=== PATIENT | female | born 1950 | race Caucasian/White ===

== ENCOUNTER 2018-01-29 15:01 | Emergency (ER) | payer OTHER, MEDICAID ==
[~2018-01-29] VITALS: Ht 167.6 cm; Wt 72.6 kg
[2018-01-29 16:00] LABS: Eosinophils # (auto) 0.1 uL; Eosinophils % (auto) 0.6 % (0.0-7.0)
[2018-01-29 16:02] LABS: Basophils # (auto) 0.1 uL; Basophils % (auto) 0.6 % (0.0-2.0); Hematocrit 25.3 % (36.0-46.0); Hemoglobin 8.4 g/dL (12.2-16.2); Lymphocytes # (auto) 0.8 uL; Lymphocytes % (auto) 6.5 % (10.0-50.0); Mean Corpuscular Hemoglobin 26.1 pg (28.0-32.0); Mean Corpuscular Hgb Conc. 33.4 g/dL (32.0-36.0); Mean Corpuscular Volume 78.3 fL (80.0-100.0); Monocytes # (auto) 0.6 uL; Monocytes % (auto) 4.7 % (0.0-12.0); Neutrophils # (auto) 10.4 uL; Neutrophils % (auto) 87.6 % (37.0-80.0); Platelet Count (auto) 236 10^3/uL (140-450); Red Blood Cells 3.23 10^6/uL (4.0-5.20); White Blood Cell 11.9 10^3/uL (4.4-10.8)
[2018-01-29 16:04] LABS: Red Cell Distribution Width 20.7 % (11.8-14.3)
[2018-01-29 16:26] LABS: Alanine Aminotransferase 13 U/L (13-56); Albumin 3.4 g/dL (3.4-5.0); Alkaline Phosphatase 100 U/L (45-117); Anion Gap 10 (5-15); Aspartate Aminotransferase 31 U/L (15-37); BUN/Creatinine Ratio 11.8; Bilirubin, Total 0.3 mg/dL (0.2-1.0); Blood Urea Nitrogen 15 mg/dL (7-18); Calcium 8.4 mg/dL (8.5-10.1); Carbon Dioxide 21 mmol/L (21-32); Chloride 97 mmol/L (98-107); GFR African American 54 mL/min; GFR Non-African American 45 mL/min; Glucose 117 mg/dL (74-106); Magnesium 2.2 mg/dL (1.6-2.6); Potassium 4.4 mmol/L (3.5-5.1); Sodium 128 mmol/L (136-145); Total Protein 7.2 g/dL (6.4-8.2)
[2018-01-29] MEDS ORDERED: ACETAMINOPHEN 325 MG TAB PO ONE ×2 (17:09→17:45)
[2018-01-29] MEDS ORDERED: cefTRIAXone 1GM/10ml IVPUSH 10 ML IV ONE (17:30)
[2018-01-29] MEDS ORDERED: AZITHROMYCIN 500MG/ 250ML 250 ML IV ONE (17:30)
[2018-01-29] MEDS ORDERED: SODIUM CHLORIDE 0.9% 1,000 ML IV ONE (17:45)
[2018-01-29] MEDS ORDERED: PROMETHAZINE W/CODEINE 5 ML ORAL SYRUP PO ONE (19:30)
[2018-01-29 21:25] VITALS: BP 84/71
== END 2018-01-29 21:36 | disposition short-term general hospital (02) ==
LOC: EDBD 15:01 → ER 15:01
DX: A41.9 Sepsis, unspecified organism (principal); J18.9 Pneumonia, unspecified organism; D50.9 Iron deficiency anemia, unspecified; E87.1 Hypo-osmolality and hyponatremia; J44.9 Chronic obstructive pulmonary disease, unspecified; K21.9 Gastro-esophageal reflux disease without esophagitis; I10 Essential (primary) hypertension
CPT/HCPCS: 36415; 71045; 80053; 83605; 83735; 84484; 85025; 87040; 93005; 96365; 96366; 96375; 99291; J0456

== ENCOUNTER 2018-12-02 21:24 | Emergency (ER) | payer OTHER, MEDICAID ==
[~2018-12-02] VITALS: Ht 147.3 cm; Wt 63.5 kg
[2018-12-02 22:19] LABS: Basophils # (auto) 0 uL; Eosinophils # (auto) 0.1 uL; Monocytes # (auto) 0.8 uL; White Blood Cell 7.1 10^3/uL (4.4-10.8)
[2018-12-02 22:21] LABS: Basophils % (auto) 0.6 % (0.0-2.0); Eosinophils % (auto) 1.6 % (0.0-7.0); Hematocrit 24.7 % (36.0-46.0); Hemoglobin 8.1 g/dL (12.2-16.2); Lymphocytes # (auto) 1.2 uL; Lymphocytes % (auto) 17.5 % (10.0-50.0); Mean Corpuscular Hemoglobin 28.3 pg (28.0-32.0); Mean Corpuscular Hgb Conc. 32.8 g/dL (32.0-36.0); Mean Corpuscular Volume 86.3 fL (80.0-100.0); Monocytes % (auto) 11.1 % (0.0-12.0); Neutrophils # (auto) 4.9 uL; Neutrophils % (auto) 69.2 % (37.0-80.0); Platelet Count (auto) 188 10^3/uL (140-450); Red Blood Cells 2.86 10^6/uL (4.0-5.20); Red Cell Distribution Width 16.8 % (11.8-14.3)
[2018-12-02 22:40] LABS: Albumin 3.4 g/dL (3.4-5.0); Anion Gap 6 (5-15); Blood Urea Nitrogen 32 mg/dL (7-18); Calcium 8.1 mg/dL (8.5-10.1); Carbon Dioxide 29 mmol/L (21-32); Chloride 85 mmol/L (98-107); Glucose 79 mg/dL (74-106); Magnesium 2.4 mg/dL (1.6-2.6); Potassium 5.2 mmol/L (3.5-5.1); Sodium 120 mmol/L (136-145)
[2018-12-02 22:50] LABS: Alanine Aminotransferase 21 U/L (13-56); Alkaline Phosphatase 71 U/L (45-117); Aspartate Aminotransferase 21 U/L (15-37); BUN/Creatinine Ratio 21.9; Bilirubin, Total 0.2 mg/dL (0.2-1.0); GFR African American 46 mL/min; GFR Non-African American 38 mL/min; Total Protein 6.3 g/dL (6.4-8.2)
[2018-12-02] MEDS ORDERED: SODIUM CHL 3% 500 ML IV ONE (23:15)
[2018-12-03] MEDS ORDERED: ACETAMINOPHEN 650 MG RECT SUPP PR ONE ×2 (07:54→08:00)
[2018-12-03 08:27] LABS: Urine Bacteria NONE SEEN /hpf (None Seen); Urine Blood 1+ /uL (Negative); Urine Specific Gravity 1.005 (1.001-1.035); Urine WBC <1 /hpf (0 - 5)
[2018-12-03 08:39] VITALS: BP 108/55
[2018-12-03] MEDS ORDERED: cefTRIAXone 1GM/50ML D5W 50 ML IV ONE ×2 (08:45→08:46)
== END 2018-12-03 09:08 | disposition short-term general hospital (02) ==
LOC: EDBD 21:24 → ER 21:32
DX: E87.8 Other disorders of electrolyte and fluid balance, not elsewhere classified (principal); N28.9 Disorder of kidney and ureter, unspecified; E86.0 Dehydration; E22.2 Syndrome of inappropriate secretion of antidiuretic hormone; J44.9 Chronic obstructive pulmonary disease, unspecified; K21.9 Gastro-esophageal reflux disease without esophagitis; I10 Essential (primary) hypertension; Z90.49 Acquired absence of other specified parts of digestive tract; Z88.8 Allergy status to other drugs, medicaments and biological substances
CPT/HCPCS: 36415; 36600; 70450; 71045; 80053; 81001; 82140; 82805; 82962; 83735; 83880; 84484; 85025; 85379; 87086; 87088; 87186; 93005; 96361; 96365; 99285; J0696

== ENCOUNTER 2019-02-21 07:42 | Emergency (ER) | payer OTHER, MEDICAID ==
[~2019-02-21] VITALS: Ht 162.6 cm; Wt 59.0 kg
[2019-02-21] MEDS ORDERED: ALBUTEROL SULF 2.5 MG/0.5ML(0.5%) NEB SOLN NEB ONE (08:00)
[2019-02-21] MEDS ORDERED: IPRATROPIUM BROM 0.5 MG/2.5ML INH SOL NEB ONE (08:00)
[2019-02-21] MEDS ORDERED: NALOXONE HCL 0.4 MG/ML VIAL IV ONE (08:00)
[2019-02-21 10:13] LABS: Alanine Aminotransferase 79 U/L (13-56); Albumin 3.2 g/dL (3.4-5.0); Anion Gap 6 (5-15); Aspartate Aminotransferase 65 U/L (15-37); BUN/Creatinine Ratio 15.9; Basophils # (auto) 0.1 uL; Basophils % (auto) 0.4 % (0.0-2.0); Blood Urea Nitrogen 23 mg/dL (7-18); Calcium 8.3 mg/dL (8.5-10.1); Carbon Dioxide 31 mmol/L (21-32); Chloride 96 mmol/L (98-107); Eosinophils # (auto) 0 uL; GFR African American 46 mL/min; GFR Non-African American 38 mL/min; Glucose 139 mg/dL (74-106); Hematocrit 29.1 % (36.0-46.0); Hemoglobin 9.5 g/dL (12.2-16.2); Lymphocytes # (auto) 0.5 uL; Lymphocytes % (auto) 2.3 % (10.0-50.0); Magnesium 2.2 mg/dL (1.6-2.6); Mean Corpuscular Hemoglobin 27.5 pg (28.0-32.0); Mean Corpuscular Hgb Conc. 32.7 g/dL (32.0-36.0); Mean Corpuscular Volume 84.3 fL (80.0-100.0); Monocytes # (auto) 1.4 uL; Monocytes % (auto) 7.1 % (0.0-12.0); Neutrophils # (auto) 17.8 uL; Neutrophils % (auto) 90.2 % (37.0-80.0); Platelet Count (auto) 300 10^3/uL (140-450); Potassium 3.4 mmol/L (3.5-5.1); Red Blood Cells 3.46 10^6/uL (4.0-5.20); Red Cell Distribution Width 18.8 % (11.8-14.3); Sodium 133 mmol/L (136-145); White Blood Cell 19.8 10^3/uL (4.4-10.8)
[2019-02-21 10:18] LABS: Alkaline Phosphatase 92 U/L (45-117); Bilirubin, Total 0.4 mg/dL (0.2-1.0); Total Protein 6.5 g/dL (6.4-8.2)
[2019-02-21] MEDS ORDERED: SODIUM CHLORIDE 0.9% 1,000 ML IV ONE (11:15)
[2019-02-21 11:26] LABS: Urine WBC None Seen /hpf (0 - 5)
[2019-02-21 11:58] LABS: Urine Bacteria NONE SEEN /hpf (None Seen); Urine Blood Negative /uL (Negative); Urine Hyaline Cast FEW /lpf (0 - 2)
[2019-02-21 12:02] LABS: Alcohol, Urine < 3.0 mg/dL (0-5); Amphetamine Screen, Urine NEGATIVE (NEGATIVE); Barbiturate Scree,Urine NEGATIVE (NEGATIVE); Benzodiazephine Screen, Urine POSITIVE (NEGATIVE); Cannabinoid Screen, Urine NEGATIVE (NEGATIVE); Cocaine Screen, Urine NEGATIVE (NEGATIVE); Opiate Scree,Urine POSITIVE (NEGATIVE); Phencyclidine Screen, Urine NEGATIVE (NEGATIVE)
[2019-02-21] MEDS ORDERED: POTASSIUM CHL 20MEQ/100ML 100 ML IV ONE (13:00)
[2019-02-21] MEDS ORDERED: cefTRIAXone 1GM/50ML D5W 50 ML IV ONE (13:00)
[2019-02-21 18:30] VITALS: BP 118/45
== END 2019-02-21 19:41 | disposition home or self-care (01) ==
LOC: ER 07:42 → EDBD 07:42 → ER 19:41
DX: G93.41 Metabolic encephalopathy (principal); R06.02 Shortness of breath; K21.9 Gastro-esophageal reflux disease without esophagitis; I10 Essential (primary) hypertension; Z90.49 Acquired absence of other specified parts of digestive tract; Z85.3 Personal history of malignant neoplasm of breast
CPT/HCPCS: 36415; 70450; 71045; 80053; 80307; 81001; 83605; 83735; 83880; 84484; 85025; 87040; 93005; 94640; 94761; 96365; 96375; 99284; J0696; J2310; J3480; J7030; J7611; J7644